=== PATIENT | female | born 1950 | race Caucasian/White ===

== ENCOUNTER → 2016-08-20 | Outpatient (CLI) | payer OTHER | LOC: BRMIMAGING 13:42 | PROVIDERS: ATTEND Physician Assistant Surgical | DX: Z09 Encounter for follow-up examination after completed treatment for conditions other than malignant neoplasm (principal); Z98.890 Other specified postprocedural states; M43.16 Spondylolisthesis, lumbar region; M51.36 Other intervertebral disc degeneration, lumbar region | CPT/HCPCS: 72100-PO ==

== ENCOUNTER → 2016-11-18 | Outpatient (CLI) | payer OTHER | LOC: BRMIMAGING 14:15 | PROVIDERS: ATTEND Internal Medicine Hematology & Oncology | DX: Z13.820 Encounter for screening for osteoporosis (principal); C50.511 Malignant neoplasm of lower-outer quadrant of right female breast; Z78.0 Asymptomatic menopausal state ==

== ENCOUNTER → 2017-05-04 | Outpatient (CLI) | payer OTHER | LOC: CIMAGING 10:22 | PROVIDERS: ATTEND Internal Medicine Hematology & Oncology | DX: Z12.31 Encounter for screening mammogram for malignant neoplasm of breast (principal); Z80.3 Family history of malignant neoplasm of breast; Z85.3 Personal history of malignant neoplasm of breast | CPT/HCPCS: G0202 ==

== ENCOUNTER → 2018-05-05 | Outpatient (CLI) | payer OTHER, MEDICARE | LOC: CIMAGING 14:33 | PROVIDERS: ATTEND Internal Medicine Hematology & Oncology | DX: Z12.31 Encounter for screening mammogram for malignant neoplasm of breast (principal); Z85.3 Personal history of malignant neoplasm of breast; Z80.3 Family history of malignant neoplasm of breast ==